=== PATIENT | female | born 1965 | race Two or more races ===

== ENCOUNTER 2018-06-05 11:58 | Day surgery (SDC) | END 2018-06-05 16:11 | disposition home or self-care (01) ==

== ENCOUNTER → 2019-01-07 | Outpatient (CLI) | payer OTHER ==
[~2019-01-07] MED LIST: aspirin; benazepril; carafate; fish oil; metformin; omeprazole; vitamin D3
== END | disposition home or self-care (01) ==
LOC: LAB 08:28
PROVIDERS: ATTEND Internal Medicine
DX: R07.9 Chest pain, unspecified (principal); R94.39 Abnormal result of other cardiovascular function study
CPT/HCPCS: 80048

== ENCOUNTER → 2019-01-30 | Outpatient (CLI) | payer OTHER ==
[~2019-01-30] MED LIST changes: +IOHEXOL 100 ML ONE; +METOPROLOL 100 MG TAB ONE; +METOPROLOL 5 MG INJ ONE; +NITROGLYCERIN AEROSOL (4.9 GM) ONE; +ONDANSETRON 4 MG INJ ONE; +SOD CHLORIDE 0.9% 100 ML ONE
== END | disposition home or self-care (01) ==
LOC: C/S 09:14
PROVIDERS: ATTEND Internal Medicine
DX: R94.39 Abnormal result of other cardiovascular function study (principal); R07.9 Chest pain, unspecified
CPT/HCPCS: 75571; 75574; J2405; Q9967; Z7610

== ENCOUNTER 2019-05-27 06:45 | Outpatient (CLI) | payer OTHER ==
[~2019-05-27] VITALS: Ht 160 cm; Wt 72.7 kg
[2019-05-27 06:00] VITALS: BP 108/77; PULSE 62; RESP 16; Ht 160 cm; Wt 72.7 kg
[~2019-05-27 06:45] MED LIST changes: -IOHEXOL 100 ML ONE; -METOPROLOL 100 MG TAB ONE; -METOPROLOL 5 MG INJ ONE; -NITROGLYCERIN AEROSOL (4.9 GM) ONE; -ONDANSETRON 4 MG INJ ONE; -SOD CHLORIDE 0.9% 100 ML ONE
== END 2019-05-27 07:00 | disposition home or self-care (01) ==
LOC: LAB 06:45 → EDSTATUS 07:30
PROVIDERS: ATTEND Obstetrics & Gynecology
DX: D25.0 Submucous leiomyoma of uterus (principal); Z53.9 Procedure and treatment not carried out, unspecified reason; E11.9 Type 2 diabetes mellitus without complications
CPT/HCPCS: 82962